=== PATIENT | female | born 1995 | race Caucasian/White ===

== ENCOUNTER 2017-12-06 04:32 | Inpatient (IN) | payer OTHER ==
[~2017-12-06] VITALS: Ht 152.4 cm; Wt 65.8 kg
[~2017-12-06 04:32] MED LIST: IBUPROFEN800 M1 PO
[2017-12-06 05:03] LABS: ABSOLUTE BASOPHIL COUNT 0 /CUMM (0.0-0.2); ABSOLUTE EOSINOPHIL COUNT 0.1 /CUMM (0.0-0.7); ABSOLUTE GRANULOCYTE CT 5.1 /CUMM (1.4-6.5); ABSOLUTE LYMPH COUNT 2.7 /CUMM (1.2-3.4); ABSOLUTE MONOCYTE COUNT 0.8 /CUMM (0.10-0.60); BASOPHIL % 0.3 % (0.0-2.0); EOSINOPHIL % 1.2 % (0-5); GRANULOCYTE % 58.3 % (42.2-75.2); HEMATOCRIT 37.9 % (37-47); MEAN CORPUSCULAR HGB 27.3 PG (27.0-31.0); MEAN CORPUSCULAR HGB CONC 33.6 G/DL (33.0-37.0); MEAN PLATELET VOLUME 7.9 FL (7.4-10.4); PLATELET COUNT 203 /CUMM (130-400); RBC DISTRIBUTION WIDTH 14.9 % (11.5-14.5); RED BLOOD CELL CT 4.68 /CUMM (4.20-5.40); WHITE BLOOD CELL COUNT 8.8 /CUMM (4.8-10.8)
[2017-12-06 05:11] VITALS: BP 116/83
--- NOTE | 2017-12-06 06:07 | History & Physical Pre-Op ---
General Information and HPI MD Statement: I have seen and personally examined JULISSA PINK and documented this H&P. The patient is a 22 year old F who presented with a patient stated chief complaint of ruptured membranes []. History of Present Illness: 22-year-old 2 para 1001 at 39 weeks gestation presents with a history of gestational diabetes rupture membranes in labor at 5 cm. Patient denies fever headache edema. Patient's gestational diabetes has been Allergies/Medications Allergies: Coded Allergies: No Known Drug Allergies (NONE 12/06/17) Home Med list Ibuprofen 800 MG TABLET 800 MG PO Q6P PRN UTERINE CRAMPING Past History Medical History Isolation History: Standard Surgical History Pertinent Surgical History: none Past Family/Social History Psychosocial History Smoking Status: Never Smoked Review of Systems Review of Systems: -13 point review of systems Exam & Diagnostic Data Last 24 Hrs of Vital Signs/I&O Vital Signs Date Time Temp Pulse Resp B/P B/P Pulse O2 O2 Flow FiO2 Mean Ox Delivery Rate 12/06 0511 116/83 Intake & Output 12/06 0800 12/06 0000 12/05 1600 Intake Total Output Total Balance Patient 145 lb Weight Physical Exam: Thin pale white female in labor HEENT anicteric Lungs clear Abdomen soft Estimated weight 3700 g Pelvic 5 cm 90% vertex Extremities negative edema Assessment/Plan Assessment/Plan: Assessment multiparity with gestational diabetes with previous history of shoulder in labor with ruptured membranes Plan observe for As Ranked By This Provider Problem List: 1. 2. Spontaneous rupture of amniotic membranes
--- NOTE | 2017-12-06 07:39 | PN- Obstetrical ---
Subjective Subjective: COMFORTABLE WITH EPIDURAL Objective Last 24 Hrs of Vital Signs/I&O Vital Signs Date Time Temp Pulse Resp B/P B/P Pulse O2 O2 Flow FiO2 Mean Ox Delivery Rate 12/06 0511 116/83 Intake & Output 12/06 0800 12/06 0000 12/05 1600 Intake Total Output Total Balance Patient 145 lb Weight Physical Exam: PALE WF IN NAD ABD SOFT NT FUNDUS FIRM NT EXT -EDEMA Obstetric Exam Dilation (cm): 7 Effacement (%): 90 Station: 0 Membranes: SROM Fluid: clear Multiple Gestation? No Contractions: Q 7-9 Assessment/Plan Assessment/Plan ASSESS TERM INADEQUATE CTX PLAN ADD PITOCIN
--- NOTE | 2017-12-06 11:07 | Labor & Delivery Summary ---
Delivery Summary Vaginal Delivery: Vaginal: vertex Episiotomy/Lacerations: Episiotomy/Lacerations: 2ND DEGREE Type: LACERATION Repair: 3 0 IN LAYERS Anesthesia: LOCAL AND EPIDURAL Placenta: Placenta: spontanteous, normal, 3 vessel, CULTURES DONE Anesthesia: block Additional Comments: Normal spontaneous vaginal delivery without meconium over second-degree laceration. Three-vessel cord clamped and cut viable female . Placenta by CCT intact. Sent to pathology after cultures drawn. Second-degree laceration repaired in layers with 3 o suture under local and epidural block. AB+
[2017-12-07 08:11] LABS: ABSOLUTE BASOPHIL COUNT 0 /CUMM (0.0-0.2); ABSOLUTE EOSINOPHIL COUNT 0.1 /CUMM (0.0-0.7); ABSOLUTE GRANULOCYTE CT 7.8 /CUMM (1.4-6.5); ABSOLUTE MONOCYTE COUNT 1.1 /CUMM (0.10-0.60); BASOPHIL % 0.4 % (0.0-2.0); EOSINOPHIL % 0.8 % (0-5); MEAN CORPUSCULAR HGB 27.5 PG (27.0-31.0); MEAN CORPUSCULAR HGB CONC 33.8 G/DL (33.0-37.0); MEAN CORPUSCULAR VOLUME 81.5 FL (81.0-99.0); MEAN PLATELET VOLUME 8.3 FL (7.4-10.4); PLATELET COUNT 176 /CUMM (130-400); RBC DISTRIBUTION WIDTH 15.1 % (11.5-14.5); RED BLOOD CELL CT 3.93 /CUMM (4.20-5.40)
--- NOTE | 2017-12-07 09:32 | PN- Post Delivery/GYN ---
Subjective Subjective: No complaintsNO Objective Last 24 Hrs of Vital Signs/I&O As per paper chart Physical Exam: White female HEENT anicteric Abdomen soft nontender Firm nontender Lochial minimal Extremities negative edema negative Homans Assessment/Plan Assessment/Plan Assessment status post normal spontaneous vaginal delivery Plan continue care
[2017-12-08] MEDS ORDERED: IBUPROFEN800 M1 PO (08:07)
[2017-12-08 09:31] LABS: ABSOLUTE BASOPHIL COUNT 0 /CUMM (0.0-0.2); ABSOLUTE EOSINOPHIL COUNT 0.2 /CUMM (0.0-0.7); ABSOLUTE GRANULOCYTE CT 6.1 /CUMM (1.4-6.5); ABSOLUTE LYMPH COUNT 2.6 /CUMM (1.2-3.4); ABSOLUTE MONOCYTE COUNT 0.8 /CUMM (0.10-0.60); BASOPHIL % 0.4 % (0.0-2.0); EOSINOPHIL % 1.7 % (0-5); GRANULOCYTE % 63.1 % (42.2-75.2); HEMATOCRIT 32.5 % (37-47); MEAN CORPUSCULAR HGB 27.8 PG (27.0-31.0); MEAN CORPUSCULAR HGB CONC 34.2 G/DL (33.0-37.0); MEAN CORPUSCULAR VOLUME 81.3 FL (81.0-99.0); MEAN PLATELET VOLUME 8.5 FL (7.4-10.4); PLATELET COUNT 214 /CUMM (130-400); WHITE BLOOD CELL COUNT 9.6 /CUMM (4.8-10.8)
== END 2017-12-08 09:40 | DRG 775 ==
LOC: CBCO 04:32 → GNO 05:06
PROVIDERS: Specialist
PROC: 0KQM0ZZ Repair Perineum Muscle, Open Approach (ICD-10-PCS; principal; 2017-12-06)
PROC: 10E0XZZ Delivery of Products of Conception, External Approach (ICD-10-PCS; principal; 2017-12-06)
DX: O70.1 Second degree perineal laceration during delivery (principal); Z37.0 Single live birth; Z3A.40 40 weeks gestation of pregnancy; O24.420 Gestational diabetes mellitus in childbirth, diet controlled
CPT/HCPCS: 87070; GNOS; 36415; 81003; 84112; J7120